=== PATIENT | male | born 2005 | race Caucasian/White ===

== ENCOUNTER 2024-11-16 15:06 | Emergency (ER) | payer OTHER ==
[~2024-11-16] VITALS: Ht 175.3 cm; Wt 58.1 kg
[2024-11-16 18:02] LABS: BASO # 0.1 10^3/uL (0.0-0.2); BASO % 0.8 % (0.0-1.0); EOS # 0.3 10^3/uL (0.0-0.5); EOS % 3.4 % (0.0-3.0); LYMPH # 2.4 10^3/uL (1.5-5.0); LYMPH % 29.6 % (24.0-44.0); MONO # 0.9 10^3/uL (0.0-0.8); MONO % 11.4 % (2.0-8.0); NEUTROPHILS # 4.4 10^3/uL (1.5-8.5); NEUTROPHILS % 54.5 % (36.0-66.0); PLATELET COUNT, AUTOMATED 252 10^3/uL (150-450)
[2024-11-16 18:18] LABS: INR 0.94
[2024-11-16 18:24] LABS: CK-MB VALUE MASS < 1.0 NG/ML (<3.6)
[2024-11-16 18:25] LABS: CPK CREATINE PHOSPHOKINASE 138 U/L (46-171)
[2024-11-16 18:26] LABS: CALCIUM LEVEL 9.4 MG/DL (8.5-10.1); CARBON DIOXIDE LEVEL 31 MMOL/L (20-31); CHLORIDE LEVEL 102 MMOL/L (98-107); CREATININE FOR GFR 0.76 MG/DL (0.70-1.30); GLOMERULAR FILTRATION RATE > 90.0 (>60); MAGNESIUM LEVEL 2.0 MG/DL (1.8-2.4); POTASSIUM SERUM 4.0 MMOL/L (3.5-5.1); SODIUM LEVEL 143 MMOL/L (136-145)
[2024-11-16] MEDS ORDERED: ISOVUE-370 76% 100 ML VIAL As Ordered ONE (19:45)
[2024-11-16] MEDS: ACETAMINOPHEN 325 MG TAB PO ONE (20:01)
[2024-11-16 21:54] VITALS: BP 124/62; TEMP 97.9; O2SAT 99
== END 2024-11-16 22:04 | disposition home or self-care (01) ==
LOC: M ED 15:06
DX: R07.89 Other chest pain (principal); R00.1 Bradycardia, unspecified; F17.290 Nicotine dependence, other tobacco product, uncomplicated; F10.10 Alcohol abuse, uncomplicated
CPT/HCPCS: 36415; 71275; 80048; 82550; 82553; 83735; 84443; 84484; 85025; 85610; 85730; 93005; 99284; Q9967

== ENCOUNTER → 2024-11-17 | Outpatient (CLI) | payer OTHER | LOC: M CARPUL 12:49 → EDUNIT# 13:30 | DX: R07.9 Chest pain, unspecified (principal); R00.1 Bradycardia, unspecified ==

== ENCOUNTER → 2025-01-21 | Outpatient (CLI) | payer OTHER | LOC: M PLAIMG 13:34 → EDUNIT# 14:00 | DX: R07.9 Chest pain, unspecified (principal) ==

== ENCOUNTER 2025-02-02 10:19 | Emergency (ER) | payer OTHER ==
[~2025-02-02] VITALS: Ht 175.3 cm; Wt 72.7 kg
[2025-02-02 10:20] VITALS: BP 123/67; TEMP 99.6; O2SAT 99
== END 2025-02-02 11:15 | disposition left against medical advice (07) ==
LOC: EDBD 10:19 → M ED 10:19
DX: Z53.21 Procedure and treatment not carried out due to patient leaving prior to being seen by health care provider (principal)

== ENCOUNTER 2025-03-04 12:10 | Emergency (ER) | payer OTHER ==
[~2025-03-04] VITALS: Ht 175.3 cm; Wt 63.2 kg
[2025-03-04 12:41] LABS: BASO # 0.1 10^3/uL (0.0-0.2); BASO % 0.9 % (0.0-1.0); EOS # 0.1 10^3/uL (0.0-0.5); EOS % 0.9 % (0.0-3.0); LYMPH # 1.8 10^3/uL (1.5-5.0); LYMPH % 27.5 % (24.0-44.0); MONO # 0.7 10^3/uL (0.0-0.8); MONO % 10.9 % (2.0-8.0); NEUTROPHILS # 3.8 10^3/uL (1.5-8.5); NEUTROPHILS % 59.6 % (36.0-66.0); PLATELET COUNT, AUTOMATED 280 10^3/uL (150-450)
[2025-03-04 13:13] LABS: CK-MB VALUE MASS 1.0 NG/ML (<3.6)
[2025-03-04 13:16] LABS: CPK CREATINE PHOSPHOKINASE 149 U/L (46-171); FREE T4 1.49 NG/DL (0.83-1.43); MB/CK RELATIVE INDEX 0.67 (< OR =4)
[2025-03-04 13:20] LABS: CALCIUM LEVEL 10.6 MG/DL (8.5-10.1); CARBON DIOXIDE LEVEL 26 MMOL/L (20-31); CHLORIDE LEVEL 106 MMOL/L (98-107); CREATININE FOR GFR 0.84 MG/DL (0.70-1.30); GLOMERULAR FILTRATION RATE > 90.0 (>60); POTASSIUM SERUM 4.8 MMOL/L (3.5-5.1); SODIUM LEVEL 141 MMOL/L (136-145)
[2025-03-04 15:59] LABS: CK-MB VALUE MASS < 1.0 NG/ML (<3.6)
[2025-03-04 16:00] VITALS: BP 122/67; O2SAT 97
[2025-03-04 16:01] LABS: CPK CREATINE PHOSPHOKINASE 130 U/L (46-171)
[2025-03-04 16:11] VITALS: TEMP 98.1
== END 2025-03-04 16:21 | disposition home or self-care (01) ==
LOC: M ED 12:10
DX: R07.9 Chest pain, unspecified (principal); R94.31 Abnormal electrocardiogram [ECG] [EKG]

== ENCOUNTER 2025-03-11 07:44 | Emergency (ER) | payer OTHER ==
[~2025-03-11] VITALS: Ht 167.6 cm; Wt 63.0 kg
[2025-03-11 08:15] LABS: BASO # 0.0 10^3/uL (0.0-0.2); BASO % 0.4 % (0.0-1.0); EOS # 0.1 10^3/uL (0.0-0.5); EOS % 1.2 % (0.0-3.0); LYMPH # 1.0 10^3/uL (1.5-5.0); LYMPH % 11.0 % (24.0-44.0); MONO # 0.8 10^3/uL (0.0-0.8); MONO % 9.0 % (2.0-8.0); NEUTROPHILS # 7.2 10^3/uL (1.5-8.5); NEUTROPHILS % 78.2 % (36.0-66.0); PLATELET COUNT, AUTOMATED 256 10^3/uL (150-450)
[2025-03-11 08:34] LABS: CK-MB VALUE MASS < 1.0 NG/ML (<3.6)
[2025-03-11 08:40] LABS: ALT/SGPT 20 U/L (7.0-40); AST/SGOT 20 U/L (<34); CALCIUM LEVEL 9.4 MG/DL (8.5-10.1); CARBON DIOXIDE LEVEL 21 MMOL/L (20-31); CHLORIDE LEVEL 108 MMOL/L (98-107); CPK CREATINE PHOSPHOKINASE 102 U/L (46-171); CREATININE FOR GFR 0.76 MG/DL (0.70-1.30); GLOMERULAR FILTRATION RATE > 90.0 (>60); POTASSIUM SERUM 3.9 MMOL/L (3.5-5.1); SODIUM LEVEL 142 MMOL/L (136-145)
[2025-03-11 09:28] LABS: MAGNESIUM LEVEL 1.6 MG/DL (1.8-2.4)
[2025-03-11 09:33] LABS: FREE T4 1.39 NG/DL (0.83-1.43)
[2025-03-11 09:49] LABS: CK-MB VALUE MASS < 1.0 NG/ML (<3.6)
[2025-03-11 09:50] LABS: CPK CREATINE PHOSPHOKINASE 106 U/L (46-171)
[2025-03-11 10:15] VITALS: BP 136/64; TEMP 98.2; O2SAT 99
[2025-03-11] MEDS ORDERED: HOLTER MONITOR XX (10:16)
== END 2025-03-11 10:24 | disposition home or self-care (01) ==
LOC: M ED 07:44 → EDBD 07:44 → M ED 10:24
DX: R00.2 Palpitations (principal); R07.89 Other chest pain; F17.290 Nicotine dependence, other tobacco product, uncomplicated

== ENCOUNTER 2025-03-16 14:55 | Inpatient (IN) | payer OTHER ==
[~2025-03-16] VITALS: Ht 175.3 cm; Wt 66.3 kg
[~2025-03-16 14:55] MED LIST: HOLTER MONITOR XX
[2025-03-16 15:27] LABS: BASO # 0.1 10^3/uL (0.0-0.2); BASO % 1.0 % (0.0-1.0); EOS # 0.2 10^3/uL (0.0-0.5); EOS % 2.4 % (0.0-3.0); LYMPH # 1.9 10^3/uL (1.5-5.0); LYMPH % 30.1 % (24.0-44.0); MONO # 0.7 10^3/uL (0.0-0.8); MONO % 10.6 % (2.0-8.0); NEUTROPHILS # 3.5 10^3/uL (1.5-8.5); NEUTROPHILS % 55.7 % (36.0-66.0); PLATELET COUNT, AUTOMATED 292 10^3/uL (150-450)
[2025-03-16 15:56] LABS: ALT/SGPT 18 U/L (7.0-40); AST/SGOT 22 U/L (<34); CALCIUM LEVEL 10.4 MG/DL (8.5-10.1); CARBON DIOXIDE LEVEL 22 MMOL/L (20-31); CHLORIDE LEVEL 102 MMOL/L (98-107); CK-MB VALUE MASS < 1.0 NG/ML (<3.6); CREATININE FOR GFR 0.81 MG/DL (0.70-1.30); GLOMERULAR FILTRATION RATE > 90.0 (>60); POTASSIUM SERUM 4.4 MMOL/L (3.5-5.1); SODIUM LEVEL 141 MMOL/L (136-145)
[2025-03-16 16:04] LABS: CPK CREATINE PHOSPHOKINASE 110 U/L (46-171)
[2025-03-16] MEDS ORDERED: HOME MED LIST COMPLETE! XX SCH (16:25)
[2025-03-16 17:09] LABS: CK-MB VALUE MASS < 1.0 NG/ML (<3.6)
[2025-03-16 17:10] LABS: ETHYL ALCOHOL (ETHANOL) < 0.003 % (0.000-0.010)
[2025-03-16 17:12] LABS: CPK CREATINE PHOSPHOKINASE 97 U/L (46-171)
[2025-03-16 17:12] LABS: SALICYLATE LEVEL < 3.0 MG/DL (<30)
[2025-03-16 17:15] LABS: FREE T4 1.44 NG/DL (0.83-1.43)
[2025-03-16 19:42] LABS: AMPHETAMINES LEVEL URINE NEGATIVE (NEGATIVE); BARBITURATES URINE NEGATIVE (NEGATIVE); BENZODIAZEPINES URINE NEGATIVE (NEGATIVE); COCAINE METABOLITE URINE NEGATIVE (NEGATIVE); METHADONE URINE NEGATIVE (NEGATIVE); OPIATES URINE NEGATIVE (NEGATIVE); PHENCYCLIDINE URINE NEGATIVE (NEGATIVE)
[2025-03-16 19:58] LABS: CANNABINOIDS URINE POSITIVE (NEGATIVE)
[2025-03-16] MEDS ORDERED: MAALOX 30 ML SUSP *UDC PO PRN (21:00)
[2025-03-16] MEDS ORDERED: MOM 30 ML SUSPENSION UDC PO PRN (21:00)
[2025-03-16] MEDS ORDERED: ACETAMINOPHEN 325 MG TAB PO PRN (21:00)
[2025-03-16] MEDS ORDERED: traZODone 50 MG TAB PO PRN (21:00)
[2025-03-16] MEDS: IBUPROFEN 400 MG TAB PO PRN (21:42)
[2025-03-16 23:00] VITALS: BP 131/66; TEMP 98.1; O2SAT 99
[2025-03-17 06:29] VITALS: BP 128/59; TEMP 97.9; O2SAT 98
[2025-03-17] MEDS ORDERED: FLUZONE VACCINE TRI PF(25-26) 0.5ML SYRINGE IM.IMMUN ONE (16:00)
== END 2025-03-17 13:42 | disposition home or self-care (01) | DRG 880 ==
LOC: EDBD 14:55 → M ED 14:55 → M ED INP 20:56 → M PSY 22:37
PROVIDERS: ADMIT General Practice; ATTEND Internal Medicine
DX: F41.9 Anxiety disorder, unspecified (principal); Z56.6 Other physical and mental strain related to work; Z59.9 Problem related to housing and economic circumstances, unspecified